=== PATIENT | female | born 1960 | race Caucasian/White ===

== ENCOUNTER 2016-09-18 15:15 | Emergency (ER) | payer OTHER ==
[~2016-09-18 15:15] MED LIST: CEFTIN500 MG PO; IBUPROFEN600 MG PO; IPRAT-ALBUT 0.5-3 ML NEB; KLONOPIN TAB 00.5 MG PO; LEVAQUIN750 MG PO; NEURONTIN 300300 MG PO; VENTOLIN HFA 66.7 GM INH
[2016-09-18 15:52] LABS: HEMOGLOBIN 14.8 gm/dl (12.3-15.3); RED BLOOD COUNT 4.48 M/UL (4.00-5.10); WHITE BLOOD COUNT 7.6 K/UL (4.5-11.0)
[2016-09-18 16:14] LABS: BUN/CREATININE RATIO 20 (0-10)
== END 2016-09-18 18:52 | disposition home or self-care (01) ==
LOC: ER1 15:15
PROVIDERS: Specialist/Technologist Athletic Trainer
DX: J40 Bronchitis, not specified as acute or chronic (principal); E87.6 Hypokalemia; E16.2 Hypoglycemia, unspecified; R91.1 Solitary pulmonary nodule; I10 Essential (primary) hypertension; Z79.899 Other long term (current) drug therapy
CPT/HCPCS: 36415; 80053; 82550; 82553; 83605; 83874; 83880; 84484; 85025; 85379; 93005; 96374; 96375; 96376; 99285; J1885; J2270; J2405; J7050; Q9963